=== PATIENT | female | born 1970 | race Caucasian/White ===

== ENCOUNTER → 2017-04-28 | Outpatient (CLI) | payer OTHER ==
--- NOTE | 2017-04-28 10:09 | RADIOLOGY REPORT PS360 ---
MRI-L-SPINE W/O, MRI-3D RENDERING/MYELOGRAM HISTORY: Low back pain with left leg numbness [employer] ORDERING PHYSICIAN: Yaya Styles MD PATIENT AGE: 47 years COMPARISON: None TECHNIQUE: Standard multiplanar multiecho sequences are performed without contrast. 3-D MIP and myelographic images are also rendered and reviewed FINDINGS: There is normal alignment. The spinal cord ends at the L1 level. There is mild multilevel degenerative changes with disc desiccation and endplate Schmorl's nodes from T 11 to S1 consistent with vertebral endplate osteochondrosis. There is slight decrease in the disc space at T11-T12, T12-L1, and L4-L5. 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 Similar finding is present on the right at T12-L1 and L1-L2. L2-L3: Minimal bulging disc. L3-L4: Minimal bulging disc L4-5: Mild degenerative disc disease with bulging disc. There is a moderate sized left paracentral disc herniation with inferior extrusion. The extruded part of the disc measures 2 cm and left. This is causing left-sided foraminal narrowing at L4 on L5 and is impinging upon the left L5 nerve root. This extends from the L4-L5 disc space inferiorly to the level of the left foramen at L5-S1. There is also some minimal impingement on the left S1 nerve root. L5-S1: Unremarkable. IMPRESSION: 1. Moderate sized left paracentral disc herniation with inferior extrusion at L4-L5. The extruded disc measures 2 cm cephalad to caudad.. This is causing left-sided foraminal narrowing at L4 on L5 and is impinging upon the left L5 nerve root. This extends from the L4-L5 disc space inferiorly to the level of the left foramen at L5-S1. There is also some minimal impingement on the left S1 nerve root. 2. Lumbar spondylosis with vertebral endplate osteochondrosis
== END ==
LOC: RAD 08:32
DX: M53.9 Dorsopathy, unspecified (principal); M54.5 Low back pain; R53.1 Weakness